=== PATIENT | male | born 1955 | race Caucasian/White ===

== ENCOUNTER 2021-02-12 15:41 | Outpatient (CLI) | payer MEDICARE, BC, SELFPAY ==
--- NOTE | 2021-02-12 | MR_ITS ---
WS: [id number] MRI LEFT HIP NONCONTRAST TECHNIQUE: Axial T1, axial T2 fat sat, coronal T1, coronal STIR, sagittal T2 fat sat, sagittal T1, an d sagittal T2 fat sat, of both hips. CLINICAL INFORMATION: PAIN OF LEFT HIP JOINT COMPARISON: None. FINDINGS: Moderate degenerative arthritis both hips with joint space narrowing. No acute fractures. Normal bone marrow signal in the femoral heads and femoral necks. Fluid collection overlying the left greater tr ochanter consistent with trochanteric bursitis. Normal visualized pubic rami. Normal pubic symphysis. Normal sacrum and sacral ala. Normal iliac wings. No free fluid in the pelvis. MR/MR hip LT wo con* [id number] IMPRESSION: 1. Moderate degenerative arthritis both hips. No acute fractures. 2. Fluid overlying the left greater trochanter consistent with trochanteric bu rsitis. 3. No other significant findings.
== END 2021-02-12 15:42 | disposition home or self-care (01) ==
LOC: RADSHAW 15:48
PROVIDERS: PCP Family Medicine; Visit Provider Nurse Practitioner Family
DX: M16.0 Bilateral primary osteoarthritis of hip (principal)
CPT/HCPCS: 73721

== ENCOUNTER 2021-08-04 11:07 | Outpatient (CLI) | payer MEDICARE, BC, SELFPAY ==
--- NOTE | 2021-08-04 11:25 | XR_ITS ---
WS: [id number] KNEE RIGHT TECHNIQUE: 3 views of the right knee CLINICAL INFORMATION: EFFUSION, RIGHT KNEE COMPARISON: None. FINDINGS: Normal anatomic alignment. Mild to moderate tricompartmental arthritis. Hypertrophic patella. Moderat e suprapatellar effusion. Soft tissue edema. No visualized fractures. XR/XR knee RT 3V* [id number] IMPRESSION: 1. Mild to moderate tricompartmental arthritis. No visualized fractures. 2. Hypertrophic patella. 3. Moderate suprapatellar effusion. Kellgren-Curtis Classification: grade 3 (moderate): moderate multiple osteoph ytes, definite narrowing of joint space and some sclerosis and possible deformi ty of bone ends
== END 2021-08-04 11:08 | disposition home or self-care (01) ==
PROVIDERS: PCP Family Medicine; Visit Provider Nurse Practitioner Family
DX: M25.461 Effusion, right knee (principal); M13.861 Other specified arthritis, right knee
CPT/HCPCS: 73562

== ENCOUNTER 2021-08-18 10:44 | Outpatient (CLI) | payer MEDICARE, BC, SELFPAY ==
--- NOTE | 2021-08-18 10:50 | MR_ITS ---
WS: [id number] MRI RIGHT KNEE HISTORY: SUPRAPATELLAR BURSITIS OF RIGHT KNEE COMPARISON: Radiograph 08/04/2021 Anterior cruciate ligament: Mild intrasubstance degeneration within the ACL but no tear. Posterior cruciate ligament: Intact. Medial collateral ligament: Increased T2 signal on both sides of the MCL but no tear. Posterior lateral corner structures: Intact. Medial menisci: Abnormal signal within the posterior horn. Increased signal towards the meniscal root with blunting of the margins. Complex tear with a horizontal component. Anterior horn is normal. Lateral meniscus: Small caliber truncated anterior horn with diffuse abnormal signal consistent with a complex tear. Extensor mechanism: Distal quadriceps tendon and patellar tendons are intact. Fluid and soft tissue: Moderate-sized suprapatellar joint effusion. No Powers's cyst. Osseous and articular structures: Patellofemoral compartment: Very slight lateral subluxation of the patella. Complete loss of cartilag e along the lateral patellar facet with mild chondromalacia along the medial compartment. Minimal sub chondral cystic changes along the lateral facet with moderate patellofemoral joint space narrowing. Medial compartment: Mild narrowing of the medial compartment. Mild thinning of the cartilage. Small o steophytes from the joint line and a small amount of marrow edema in the tibial plateau. Lateral compartment: Mild narrowing of the lateral compartment. Mild thinning of the cartilage. Invol ving the anterior femoral condyle and posterior tibial plateau. No fracture. MR/MR knee RT wo con* [id number] IMPRESSION: 1. Complex tear anterior horn lateral meniscus. 2. Abnormal signal posterior horn medial meniscus with a minimally complex tea r including a horizontal component. 3. Tricompartment internal derangement with joint space narrowing, loss of car tilage and osteophytes. Most significant loss of cartilage involving the latera l patellar facet. 4. Moderate suprapatellar joint effusion.
== END 2021-08-18 10:45 | disposition home or self-care (01) ==
LOC: RADSHAW 10:47
PROVIDERS: PCP Family Medicine; Visit Provider Nurse Practitioner Family
DX: M70.51 Other bursitis of knee, right knee (principal); S83.271A Complex tear of lateral meniscus, current injury, right knee, initial encounter; X58.XXXA Exposure to other specified factors, initial encounter; M25.461 Effusion, right knee; M23.91 Unspecified internal derangement of right knee
CPT/HCPCS: 73721